=== PATIENT | female | born 1960 | race Caucasian/White ===

== ENCOUNTER 2020-04-08 11:56 | Inpatient (IN) ==
[2020-04-08] MEDS ORDERED: CeFAZolin Syr 2,000MG/20 ML 2,000 MG/20 ML SYRINGE IVPB ONE (12:26)
[2020-04-08] MEDS ORDERED: Ringers Solution, Lactated 1,000 ML IVC SCH ×2 (12:30→17:10)
[2020-04-08] MEDS ORDERED: *HR* Promethazine 25 MG/ML VIAL IVP PRN (12:40)
[2020-04-08] MEDS ORDERED: *HR* HYDROmorphone (PF) 1 MG/ML SYRINGE IVP PRN (12:40)
[2020-04-08] MEDS ORDERED: Ondansetron 4 MG/2 ML VIAL IVP PRN ×2 (12:40→17:10)
[2020-04-08] MEDS ORDERED: *HR* Labetalol 20 MG/4 ML SYRINGE IVP PRN (12:40)
[2020-04-08] MEDS ORDERED: *HR* Midazolam HCl 2 MG/2 ML VIAL ONE (13:17)
[2020-04-08] MEDS ORDERED: *HR* FentaNYL (PF) 100 MCG/2 ML VIAL ONE (13:17)
[2020-04-08] MEDS ORDERED: Ropivacaine/PF 0.5% 30 ML VIAL ONE (13:18)
[2020-04-08] MEDS ORDERED: *HR* PHENYLEPHRINE 1,000 MCG/10 ML SYRINGE IVP ONE (13:31)
[2020-04-08] MEDS ORDERED: Lidocaine -MPF 2% 2 ML VIAL ONE (13:41)
[2020-04-08] MEDS ORDERED: *HR* Propofol 200 MG/20 ML VIAL IVP ONE (13:41)
[2020-04-08] MEDS ORDERED: Vancomycin 1,000 MG VIAL ONE (14:10)
[2020-04-08] MEDS ORDERED: Ethanol\\Acetic Acid\\Na Ace\\Ben 1,000 ML IRRIG.SOLN IR ONE (14:10)
[2020-04-08] MEDS ORDERED: EPHEDrine 50 MG/ML VIAL ONE (14:52)
[2020-04-08] MEDS ORDERED: *HR* Phenylephrine 10 MG/ML VIAL ONE (15:23)
[2020-04-08 16:41] LABS: Hematocrit 33.9 % (35.3-44.9); Hemoglobin 10.5 g/dL (11.5-15.4)
[2020-04-08] MEDS ORDERED: D5% in Water 1,000 ML IVC PRN (17:10)
[2020-04-08] MEDS ORDERED: MOM Conc 10 ML UD.LIQ PO PRN (17:10)
[2020-04-08] MEDS ORDERED: Naloxone 0.4 MG/ML INJ IVP PRN (17:10)
[2020-04-08] MEDS ORDERED: hydrOXYzine pamoate 25 MG CAPSULE PO PRN (17:10)
[2020-04-08] MEDS ORDERED: Cyanocobalamin (B-12) 1,000 MCG/ML VIAL IM SCH (17:10)
[2020-04-08] MEDS ORDERED: *HR* Dextrose 50 % in Water (Vial) 50 ML VIAL IVP PRN (17:10)
[2020-04-08] MEDS ORDERED: Albuterol 2.5 MG/3 ML NEBULIZER IH PRN (17:10)
[2020-04-08] MEDS ORDERED: Sennosides 8.6 MG TABLET PO PRN (17:10)
[2020-04-08] MEDS ORDERED: Dextrose Gel 15 GM/37.5 ML TUBE PO PRN ×2 (17:10)
[2020-04-08] MEDS ORDERED: *HR* OxyCODONE/APAP 5/325 TABLET PO PRN (17:10)
[2020-04-08] MEDS: *HR* Enoxaparin 30 MG/0.3 ML SYRINGE SQ SCH (17:49)
[2020-04-08] MEDS ORDERED: *HR* Enoxaparin 30 MG/0.3 ML SYRINGE SQ SCH (18:00)
[2020-04-08] MEDS: Insulin LISPRO 300 UNITS/3 ML VIAL SQ SCH (18:11)
[2020-04-08] MEDS: Topiramate 25 MG TABLET PO SCH (20:40)
[2020-04-08] MEDS: diazePAM 5 MG TABLET PO SCH (20:42)
[2020-04-08] MEDS: *HR* OxyCODONE Immed Rel 5 MG TABLET PO PRN (20:52)
[2020-04-08] MEDS ORDERED: Insulin LISPRO 300 UNITS/3 ML VIAL SQ SCH (21:00)
[2020-04-08] MEDS ORDERED: traZODone 50 MG TABLET PO SCH (21:00)
[2020-04-08] MEDS ORDERED: CeFAZolin 2 GM/120 ML BAG IVPB SCH (22:00)
[2020-04-09] MEDS: *HR* OxyCODONE Immed Rel 5 MG TABLET PO PRN ×2 (04:09→08:05)
[2020-04-09] MEDS ORDERED: CefTRIAXone 1,000 MG VIAL IM ONE (06:06)
[2020-04-09] MEDS: *HR* Enoxaparin 30 MG/0.3 ML SYRINGE SQ SCH (06:17)
[2020-04-09] MEDS: Topiramate 25 MG TABLET PO SCH (07:58)
[2020-04-09] MEDS: Insulin LISPRO 300 UNITS/3 ML VIAL SQ SCH (07:59)
[2020-04-09] MEDS: diazePAM 5 MG TABLET PO SCH (07:59)
[2020-04-09] MEDS ORDERED: Fluticasone Propionate Nasal 50 MCG/SPRAY BOTTLE NS SCH (09:00)
[2020-04-09] MEDS ORDERED: Loratadine 10 MG TABLET PO SCH (09:00)
[2020-04-09] MEDS ORDERED: hydroCHLOROthiazide 25 MG TABLET PO SCH (09:00)
[2020-04-09 09:21] LABS: Hematocrit 30.3 % (35.3-44.9); Hemoglobin 9.4 g/dL (11.5-15.4)
[2020-04-09 09:40] LABS: BUN/Creatinine Ratio 16 (6-26); Blood Urea Nitrogen 13 mg/dL (6-20); Calcium 9.1 mg/dL (8.6-10.3); Carbon Dioxide 26 mEq/L (23-29); Chloride 101 mEq/L (98-107); Glucose 98 mg/dL (70-105); Osmolality,Calculated 278 (280-300); Potassium 4.1 mEq/L (3.5-5.1); Sodium 134 mEq/L (136-145); eGFR For African Americans > 60 (> 60); eGFR For Non-African Americans > 60 (> 60)
[2020-04-09 11:06] VITALS: BP 133/83
== END 2020-04-09 13:45 | disposition home health service (06) | DRG 322 ==
LOC: SAMDAY 11:56 → 3NENU 17:09
PROVIDERS: ADMIT Orthopaedic Surgery; ATTEND Orthopaedic Surgery